=== PATIENT | female | born 1945 | race Caucasian/White ===

== ENCOUNTER 2018-04-10 10:53 | Outpatient (CLI) | payer MEDICARE ==
--- NOTE | 2018-04-10 13:34 | BD ---
BONE DENSITOMETRY USING DEXA: Date: 04/10/18 HISTORY: Postmenopausal screening for osteoporosis. FINDINGS: Lumbar Spine: BMD (g/cm2) L1 0.884 T-Score: -1.0 Z-Score: 1.0 L2 1.018 T-Score: -0.1 Z-Score: 2.1 L3 0.973 T-Score: -1.0 Z-Score: 1.3 L4 0.940 T-Score: -1.1 Z-Score: 1.3 L1-L4 0.953 T-Score: -0.9 Z-Score: 1.4 Femoral Neck: 0.515 T-Score: -3.0 Z-Score: -1.1 Total Femur: 0.789 T-Score: -2.1 Z-Score: -0.5 There has been interval reduction of 6.5% of the bone mineral density of the lumbar spine and an impr ovement of 2.7% of the bone mineral density of the proximal femur since 08/12/07. IMPRESSION: Osteoporosis. POS: OFF
== END 2018-04-10 10:54 | disposition home or self-care (01) ==
LOC: BICMAMMO 10:53
PROVIDERS: ATTEND Internal Medicine
DX: Z12.31 Encounter for screening mammogram for malignant neoplasm of breast (principal); M81.0 Age-related osteoporosis without current pathological fracture
CPT/HCPCS: 77063; 77067; 77080

== ENCOUNTER 2019-05-25 15:05 | Outpatient (CLI) | payer MEDICARE ==
--- NOTE | 2019-05-26 14:40 | MMO ---
Bilateral MAMMO Bilat Screen [facility]. CLINICAL HISTORY: Patient is 73 years old and is seen for screening. The patient has no family history of breast cancer. The patient has no personal history of cancer. VIEWS: The views performed were: bilateral craniocaudal with tomosynthesis and bilateral mediolateral oblique with tomosynthesis. FILMS COMPARED: The present examination has been compared to prior imaging studies performed at [facility] on 05/07/2006, 10/21/2014, 01/14/2017 and 04/10/2018. This study has been interpreted with the assistance of computer-aided detection. MAMMOGRAM FINDINGS: The breasts are heterogeneously dense, which could obscure a lesion on mammography. There is a single benign appearing calcification seen in the left breast. There are no suspicious masses, suspicious calcifications, or new areas of architectural distortion. IMPRESSION: THERE IS NO MAMMOGRAPHIC EVIDENCE OF MALIGNANCY. A ROUTINE FOLLOW-UP MAMMOGRAM IN 1 YEAR IS RECOMMENDED. THE RESULTS OF THIS EXAM WERE SENT TO THE PATIENT. ACR BI-RADS Category 2 - Benign finding MAMMOGRAPHY NOTE: 1. A negative mammogram report should not delay a biopsy if a dominant of clinically suspicious mass is present. 2. Approximately 10% to 15% of breast cancers are not detected by mammography. 3. Adenosis and dense breasts may obscure an underlying neoplasm. Reported by: SUMAYA SORIANO MD Electonically Signed: [id number]
== END 2019-05-25 15:06 | disposition home or self-care (01) ==
LOC: BICMAMMO 15:05
PROVIDERS: ATTEND Internal Medicine
DX: Z12.31 Encounter for screening mammogram for malignant neoplasm of breast (principal)
CPT/HCPCS: 77063; 77067

== ENCOUNTER 2020-08-03 10:33 | Outpatient (CLI) | payer MEDICARE | END 2020-08-03 10:34 | disposition home or self-care (01) | LOC: BICMAMMO 10:33 | PROVIDERS: ATTEND Internal Medicine | DX: Z12.31 Encounter for screening mammogram for malignant neoplasm of breast (principal); Z13.820 Encounter for screening for osteoporosis; Z78.0 Asymptomatic menopausal state; M81.0 Age-related osteoporosis without current pathological fracture | CPT/HCPCS: 77063; 77067; 77080 ==

== ENCOUNTER 2020-08-18 06:59 | Outpatient (CLI) | payer MEDICARE | END 2020-08-18 07:00 | disposition home or self-care (01) | LOC: BICULT 06:59 | PROVIDERS: ATTEND Internal Medicine | DX: R14.0 Abdominal distension (gaseous) (principal); R93.89 Abnormal findings on diagnostic imaging of other specified body structures | CPT/HCPCS: 76856; 93975 ==

== ENCOUNTER 2020-09-20 16:25 | Outpatient (CLI) | payer MEDICARE | END 2020-09-20 16:26 | disposition home or self-care (01) | LOC: BICRAD 16:25 | PROVIDERS: ATTEND Internal Medicine | DX: M54.2 Cervicalgia (principal); M47.812 Spondylosis without myelopathy or radiculopathy, cervical region | CPT/HCPCS: 72040 ==

== ENCOUNTER 2021-04-02 18:46 | Emergency (ER) | payer OTHER, MEDICARE ==
[2021-04-02] MEDS ORDERED: Boostrix 0.5 ML (Tdap) VIAL ONE (19:55)
== END 2021-04-02 20:34 | disposition home or self-care (01) ==
LOC: ERS 18:46
DX: S62.622A Displaced fracture of middle phalanx of right middle finger, initial encounter for closed fracture (principal); S01.81XA Laceration without foreign body of other part of head, initial encounter; W01.0XXA Fall on same level from slipping, tripping and stumbling without subsequent striking against object, initial encounter
CPT/HCPCS: 12015; 70450; 70486; 72125; 90471; 90715

== ENCOUNTER 2021-09-05 15:26 | Outpatient (CLI) | payer MEDICARE | END 2021-09-05 15:27 | disposition home or self-care (01) | LOC: BICMAMMO 15:26 | PROVIDERS: ATTEND Internal Medicine | DX: Z12.31 Encounter for screening mammogram for malignant neoplasm of breast (principal) | CPT/HCPCS: 77063; 77067 ==

== ENCOUNTER 2022-11-20 08:36 | Outpatient (CLI) | payer MEDICARE | END 2022-11-20 08:37 | disposition home or self-care (01) | LOC: BICCT 08:36 | PROVIDERS: ATTEND Internal Medicine | DX: R14.0 Abdominal distension (gaseous) (principal); K59.00 Constipation, unspecified | CPT/HCPCS: 74177 ==

== ENCOUNTER 2023-01-15 09:57 | Outpatient (CLI) | payer MEDICARE | END 2023-01-15 09:58 | disposition home or self-care (01) | LOC: BICMAMMO 09:57 | PROVIDERS: ATTEND Internal Medicine | DX: Z12.31 Encounter for screening mammogram for malignant neoplasm of breast (principal); Z13.820 Encounter for screening for osteoporosis; M81.0 Age-related osteoporosis without current pathological fracture; M85.89 Other specified disorders of bone density and structure, multiple sites; Z78.0 Asymptomatic menopausal state | CPT/HCPCS: 77063; 77067; 77080 ==

== ENCOUNTER 2024-02-25 11:13 | Outpatient (CLI) | payer MEDICARE | END 2024-02-25 11:14 | disposition home or self-care (01) | LOC: BICMAMMO 11:13 | PROVIDERS: ATTEND Internal Medicine | DX: Z12.31 Encounter for screening mammogram for malignant neoplasm of breast (principal) | CPT/HCPCS: 77063; 77067 ==